=== PATIENT | female | born 2005 | race African-American/Black ===

== ENCOUNTER 2025-05-23 16:24 | Emergency (ER) | payer MEDICAID, OTHER ==
[~2025-05-23] VITALS: Ht 167.6 cm; Wt 106.0 kg
--- NOTE | 2025-05-23 17:13 | ED.PDOC ---
Eye-HPI HPI Comments 19 year old presents for impacted cerumen/wax built up and would like it r emoved. No other complaint Chief Complaint: Earache Time Seen by MD: 16:41 Reviewed Notes: Nurses Notes, Medications, Allergies Allergies: Coded Allergies: NO KNOWN ALLERGIES (Unverified , 05/23/25) Information Source: Patient Mode of Arrival: Ambulatory All Other Systems: Reviewed and Negative (PER HPI) Physical Exam General Appearance: No Apparent Distress, Normal HEENT: Normal ENT Inspection, Pharynx Normal, TM Abnormal (R) (Wax bulit up) Neck: Full Range of Motion, Non-Tender, Normal, Normal Inspection Respiratory: Chest Non-Tender, Lungs Clear, No Accessory Muscle Use, No Respiratory Distress, Normal Breath Sounds Cardiovascular: No Edema, No JVD, No Murmur, No Gallop, Normal Peripheral Pulses, Regular Rate/Rhythm Breast Exam: Deferred Gastrointestinal: No Organomegaly, Non Tender, No Pulsatile Mass, Normal Bowel Sounds, Soft Genitalia: Deferred Pelvic: Deferred Rectal: Deferred Extremities: No calf tenderness, Normal capillary refill, Normal inspection, Normal range of motion, Non-tender, No pedal edema Musculoskeletal : Apperance: Normal Neurologic: Alert, clinical professor II-XII nml as Tested, No Motor Deficits, Normal Affect, Normal Mood, No Sensory Deficits Cerebellar Function: Normal Reflexes: Normal Skin: Dry, Normal Color, Warm Lymphatic: No Adenopathy Was a procedure done? Was a procedure done?: No EENT DIFF Eye: Other X-Ray, Labs, Meds, VS Vital Signs Date Time Temp Pulse Resp B/P (MAP) Pulse Ox O2 Delivery O2 Flow Rate FiO2 05/23/25 17:41 98.4 69 16 115/79 (91) 97 98.4 05/23/25 17:41 69 16 98 Room Air 05/23/25 16:30 98.2 77 16 118/76 98 98.2 X-Ray, Labs, Meds, VS Comment Exam findings consistent with impacted cerumen Risk and benefits were discussed including tympanic membrane perforation, hearing loss, otitis externa, vertigo, and minor canal abrasion if wax is adherent to the epithelium Verbal consent. Removed with ear lavage system. Patient tolerated procedure well On reevaluation of ear, improved ear cannal with small cerumen, visualization of TM is intact. Avoid self instrumentation/Q-tips Return precautions were discussed including fever vertigo hearing loss or purulent drainage Time of 1ST Reevaluation: 17:00 Reevaluation 1ST: Improved Patient Education/Counseling: Diagnosis, Treatment Family Education/Counseling: Diagnosis, Treatment SEPSIS Sepsis Screen Date sepsis recognized/suspect: May 23, 2025 Time Sepsis recognized/suspect: 1633 Recent Procedure: No On Antibiotic Therapy: No Respiratory Rate >20: No Heart Rate >90: No Temp<36 C (96.8 F) or >38.3 C: No SBP <90 or MAP <65 mmHG: No New Acute Mental Status Change: No Is the patient on CPAP, BIPAP,: No Vital Signs Date Time Temp Pulse Resp B/P (MAP) Pulse Ox O2 Delivery O2 Flow Rate FiO2 05/23/25 17:41 98.4 69 16 115/79 (91) 97 98.4 05/23/25 17:41 69 16 98 Room Air 05/23/25 16:30 98.2 77 16 118/76 98 98.2 Departure 1 Departure Time of Disposition: 17:13 Impression: Primary Impression: Impacted cerumen of right ear Disposition: 01 HOME / SELF CARE / HOMELESS Condition: Stable Discharged With: Self Critical Care Note Critical Care Time?: No Stability Stability form required: No Heart Score Heart Score: Heart Score Response (Comments) Value History N/A 0 EKG N/A 0 Age N/A 0 Risk Factors N/A 0 Troponin N/A 0 Total 0 EMRE DEJESUS NP May 23, 2025 17:13
[2025-05-23 17:41] VITALS: BP 115/79; PULSE 69; RESP 16; TEMP 98.4; O2SAT 98
== END 2025-05-23 17:44 | disposition home or self-care (01) ==
LOC: ER 16:29
DX: H61.21 Impacted cerumen, right ear (principal)
CPT/HCPCS: 69209